=== PATIENT | male | born 1960 | race Caucasian/White ===

== ENCOUNTER 2020-06-27 20:36 | Observation (INO) ==
[2020-06-27 21:46] LABS: Basophils # 0.1 K/mcL (0.0-0.2); Eosinophils # 0.5 K/mcL (0.0-0.6); Eosinophils % 5.7 %; Hematocrit 46.6 % (37.5-50.1); Hemoglobin 15.3 g/dL (12.9-16.9); Immature Granulocytes % 0.5 % (0-4); Lymphocytes # 1.2 K/mcL (0.6-4.6); Lymphocytes % 15.3 %; Mean Corpuscular HGB Conc 32.8 g/dL (31.6-35.5); Mean Corpuscular Hemoglobin 30.1 pg (28.0-33.3); Mean Corpuscular Volume 91.6 fL (83.0-100.0); Monocytes # 0.9 K/mcL (0.0-1.3); Neutrophils # 5.2 K/mcL (1.6-8.9); Platelet Count 207 K/mcL (140-400); Red Blood Count 5.09 M/mcL (4.19-5.50); Red Cell Distribution Width 12.8 % (11.5-14.5); Segmented Neutrophils % 66.5 %; White Blood Count 7.8 K/mcL (4.3-11.1)
[2020-06-27 21:57] LABS: BUN/Creatinine Ratio 17 (6-26); Blood Urea Nitrogen 16 mg/dL (6-20); Calcium 9.4 mg/dL (8.6-10.3); Carbon Dioxide 24 mEq/L (23-29); Chloride 105 mEq/L (98-107); Glucose 115 mg/dL (70-105); Osmolality,Calculated 286 (280-300); Potassium 3.9 mEq/L (3.5-5.1); Sodium 137 mEq/L (136-145); Troponin I < 0.03 ng/mL (< 0.04); eGFR For African Americans > 60 (> 60); eGFR For Non-African Americans > 60 (> 60)
[2020-06-27] MEDS ORDERED: Naloxone 0.4 MG/ML INJ IVP PRN (23:02)
[2020-06-27] MEDS ORDERED: *HR* Heparin 5,000 UNIT/ML VIAL IVP PRN ×2 (23:39)
[2020-06-27] MEDS ORDERED: *HR* Heparin 5,000 UNIT/ML VIAL IVP ONE (23:39)
[2020-06-27] MEDS ORDERED: Heparin 25,000UNIT/250ML 1/2NS 25,000 UNIT/250 ML IV.SOLN IVC SCH (23:45)
[2020-06-28 00:24] LABS: INR 0.9; Prothrombin Time 10.9 Seconds (9.4-12.1)
[2020-06-28 00:27] LABS: Heparin anti-factor XA UFH < 0.04 IU/mL (0.30-0.70)
[2020-06-28] MEDS: Nitroglycerin 0.4 MG TAB.SUBL SL PRN ×3 (03:48→07:59)
[2020-06-28 05:59] LABS: Hematocrit 44.7 % (37.5-50.1); Mean Corpuscular HGB Conc 33.6 g/dL (31.6-35.5); Mean Corpuscular Hemoglobin 30.8 pg (28.0-33.3); Mean Corpuscular Volume 91.8 fL (83.0-100.0); Mean Platelet Volume 9.9 fL (9.4-12.4); Platelet Count 186 K/mcL (140-400); Red Blood Count 4.87 M/mcL (4.19-5.50); Red Cell Distribution Width 12.9 % (11.5-14.5); White Blood Count 8.1 K/mcL (4.3-11.1)
[2020-06-28 06:22] LABS: BUN/Creatinine Ratio 15 (6-26); Blood Urea Nitrogen 14 mg/dL (6-20); Calcium 9.3 mg/dL (8.6-10.3); Carbon Dioxide 27 mEq/L (23-29); Chloride 103 mEq/L (98-107); Glucose 131 mg/dL (70-105); Osmolality,Calculated 286 (280-300); Phosphorous 2.9 mg/dL (2.7-4.5); Potassium 4.1 mEq/L (3.5-5.1); Sodium 137 mEq/L (136-145); Troponin I < 0.03 ng/mL (< 0.04); eGFR For African Americans > 60 (> 60); eGFR For Non-African Americans > 60 (> 60)
[2020-06-28 09:33] LABS: Troponin I < 0.03 ng/mL (< 0.04)
[2020-06-28] MEDS: Aspirin Enteric Coated 81 MG Tablet PO SCH (10:54)
[2020-06-28] MEDS: carvediloL 6.25 MG TABLET PO SCH ×2 (10:55→17:38)
[2020-06-28] MEDS ORDERED: Perflutren Lipid Microsphere 1.3 ML in 0.9 % Sodium Chloride 8.7 ML IVP PRN (11:22)
[2020-06-28] MEDS ORDERED: *HR* FentaNYL (PF) 100 MCG/2 ML VIAL ONE (13:35)
[2020-06-28] MEDS ORDERED: *HR* Midazolam HCl 2 MG/2 ML VIAL ONE (13:35)
[2020-06-28] MEDS ORDERED: ISOVUE-370 200 ML INFUS..BTL ONE (13:36)
[2020-06-28] MEDS ORDERED: Heparin 1,000 UNITS/500 mL 500 ML ONE (13:36)
[2020-06-28] MEDS ORDERED: 0.9 % Sodium Chloride 1,000 ML ONE (13:36)
[2020-06-28] MEDS ORDERED: Nitroglycerin 1,000 MCG/10 ML VIAL IV ONE (13:36)
[2020-06-28] MEDS ORDERED: *HR* Heparin 10,000 UNIT/10 ML VIAL ONE (13:36)
[2020-06-28 20:04] LABS: C-Reactive Protein 8 mg/L (Less than 10)
[2020-06-29 06:42] VITALS: BP 114/71
[2020-06-29] MEDS ORDERED: Isosorbide MONOnitrate (24 HR) 30 MG TAB.ER.24H PO SCH (09:00)
[2020-06-29] MEDS: carvediloL 6.25 MG TABLET PO SCH (09:06)
[2020-06-29] MEDS: Aspirin Enteric Coated 81 MG Tablet PO SCH (09:06)
== END 2020-06-29 12:08 | disposition home or self-care (01) ==
LOC: EMEROOARM 20:36 → CDU 20:36 → SUATTDRO 22:44 → CDU 23:43 → 3BNU 06-28 17:13
PROVIDERS: ADMIT Internal Medicine; ATTEND Internal Medicine